=== PATIENT | female | born 1995 | race Caucasian/White ===

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

== ENCOUNTER 2017-02-15 18:03 | Emergency (ER) | payer OTHER ==
[2017-02-15] MEDS ORDERED: KETOROLAC 30 MG/1 ML SDV IVP ONE (19:09)
[2017-02-15] MEDS ORDERED: ONDANSETRON 4 MG/2 ML VIAL IVP ONE (19:09)
[2017-02-15] MEDS ORDERED: NS 1,000 ML IV ONE ×2 (19:09)
[2017-02-15] MEDS ORDERED: FAMOTIDINE 20 MG/NACL 50 ML IV ONE (19:09)
[2017-02-15 19:33] VITALS: RESP 18; O2SAT 97
[2017-02-15] MEDS ORDERED: DEXAMETHASONE 10 MG/ML VIAL IVP ONE (19:48)
--- NOTE | 2017-02-15 19:54 | EDPHY ---
H & P Time Seen by Provider: 02/15/17 19:07 HPI/ROS: HPI Flu-like symptoms. 21-year-old female by private vehicle from [facility]. She complains of flu-like symptoms including malaise, arthralgias and myalgias, sore throat, nausea, fever ongoing for 3 days now. She was seen today at the [facility]. She had negative Monospot, negative rapid strep and a negative flu. Her blood work was also unremarkable. She was sent down here for further evaluation. ROS: Constitutional: As above. Eyes: No discharge. No changes in vision. ENT: As above. No nasal congestion or rhinorrhea. Respiratory: No cough. No shortness of breath. Cardiac: No chest pain, no palpitations. Gastrointestinal: No abdominal pain, as above, no diarrhea. Genitourinary: No hematuria. No dysuria or increased frequency with urination. Musculoskeletal: As above. Skin: No rashes. Neurological: No headache. No focal weakness or altered sensation. Past medical history: Torn ACL and meniscus, exercise-induced asthma, shingles. As above. Social history: Student [place]. No alcohol. Nonsmoker. Here by herself. Physical Exam: General Appearance: Alert, no distress. This patient is responding to questions appropriately and in full sentences. This patient appears well- hydrated and well-nourished. Eyes: Pupils equal and round no pallor or injection. No lid edema, erythema or injection. ENT, Mouth: Mucous membranes are moist. Significant pharyngeal erythema with pharyngeal and tonsillar exudates. No significany edema or swelling. No asymmetry suggestive of abscess. No Strider on auscultation of her neck. Her voice changes. Respiratory: There are no retractions, lungs are clear to auscultation with good air movement bilaterally. Cardiovascular: Regular rate and rhythm. No murmur. Gastrointestinal: Abdomen is soft and nontender, no masses, bowel sounds normal. No focal tenderness at McBurney's point. No Villarreal sign. Neurological: Motor sensory function is grossly intact. Cranial nerves are normal. Gait is normal. Skin: Warm and dry, no rashes. Musculoskeletal: Neck is supple and nontender. Anterior cervical lymphadenopathy. No pain on flexion of the neck. Extremities are symmetrical. All joints range without pain or impingement. Psychiatric: No agitation. No depression. Database: EKG: Imaging: Procedures: Emergency department course: IV was placed. She was placed on a monitor. Rapid strep with culture ordered. It is unclear whether not she had a culture ordered at the [facility]. Vital signs reviewed. Mildly tachycardic. Temperature 37.6degrees. Vital signs otherwise unremarkable. IV established. She was started on IV normal saline with 1-2 L to be given over the next 1-2 hours. She has no history of renal dysfunction or peptic ulcer disease. She was given 30 mg of IV Toradol. She will be given 10 mg of IV Decadron. She will be given 4 mg of IV Zofran and 20 mg of IV Pepcid for nausea. 8:50 p.m., patient re-evaluated. She is feeling better at this time. Repeat abdominal exam she is soft, nontender nondistended. She has no right lower quadrant or periumbilical tenderness on palpation. She feels comfortable going home at this time. Follow-up and return to emergency department precautions reviewed with her. I discussed ibuprofen dosing with her. She will be prescribed Zofran for nausea. All of her questions were answered. She was discharged in good condition. Differential Diagnosis: The differential diagnosis on this patient includes but is not limited to influenza, mononucleosis, viral syndrome, viral pharyngitis. Appendicitis unlikely. This represents a partial list of diagnoses considered. These considerations are based on history, physical exam, past history, reassessment and diagnostic testing. Smoking Status: Never smoked Constitutional: Initial Vital Signs Temperature (C) 37.6 C 02/15/17 18:27 Heart Rate 106 H 02/15/17 18:27 Respiratory Rate 16 02/15/17 18:27 Blood Pressure 98/62 L 02/15/17 18:27 O2 Sat (%) 96 02/15/17 18:27 O2 Delivery Mode Room Air Allergies/Adverse Reactions: No Known Allergies Allergy (Verified 02/15/17 18:26) Home Medications: Medication Instructions Recorded Azurette 28 Day Tablet 02/15/17 IBUPROFEN 02/15/17 Ondansetron Odt [Zofran Odt 4 mg 4 mg PO Q4PRN PRN #10 tab 02/15/17 (*)] Medical Decision Making - Data Points Laboratory Results: Laboratory Results 02/15/17 19:10 Medications Given: Discontinued Medications Dexamethasone (Decadron Injection) 10 mg IVP EDNOW ONE Stop: 02/15/17 19:49 Last Admin: 02/15/17 19:57 Dose: 10 mg Sodium Chloride (Ns) 1,000 mls @ 0 mls/hr IV ONCE ONE; Wide Open PRN Reason: Protocol Stop: 02/15/17 19:10 Last Admin: 02/15/17 19:23 Dose: 1,000 mls Sodium Chloride (Ns) 1,000 mls @ 0 mls/hr IV ONCE ONE; Wide Open PRN Reason: Protocol Stop: 02/15/17 19:10 Last Admin: 02/15/17 20:14 Dose: 1,000 mls Famotidine/Sodium Chloride (Pepcid 20 Mg (Premix)) 50 mls @ 200 mls/hr IV EDNOW ONE Stop: 02/15/17 19:23 Last Admin: 02/15/17 19:24 Dose: 50 mls Ketorolac Tromethamine (Toradol) 30 mg IVP EDNOW ONE Stop: 02/15/17 19:10 Last Admin: 02/15/17 19:24 Dose: 30 mg Ondansetron HCl (Zofran) 4 mg IVP EDNOW ONE Stop: 02/15/17 19:10 Last Admin: 02/15/17 19:24 Dose: 4 mg Ondansetron HCl (Zofran Odt 4 Mg Prepack#2) 1 btl TAKEHOME EDNOW ONE Stop: 02/15/17 21:19 Last Admin: 02/15/17 21:18 Dose: 1 btl Departure - Departure Disposition: Home, Routine, Self-Care Clinical Impression: Pharyngitis, Viral syndrome Condition: Good Instructions: Ondansetron (By mouth), Pharyngitis (ED), Influenza (ED) Additional Instructions: Read and follow provided instructions. Follow-up with your primary care physician tomorrow for re-evaluation. You can start taking ibuprofen tomorrow morning. Ibuprofen dosin mg every 6 hours with meals for the next 3 days only. Take only as needed for pain. Take Tylenol as directed for fever. Keep well hydrated. Get plenty of rest. Return to the emergency department for worsening symptoms, worsening abdominal pain, high fever, vomiting and inability to keep fluids down despite medications or other serious concerns. Referrals: [facility] [Other] - As per Instructions Stand Alone Forms: School Excuse Prescriptions: Ondansetron Odt [Zofran Odt 4 mg (*)] 4 mg PO Q4PRN PRN #10 tab PRN Reason: For Nausea & Vomiting
[2017-02-15 20:59] LABS: HEMATOCRIT 36.1 % (38.0-47.0)
[2017-02-15 21:05] LABS: BILIRUBIN,TOTAL 0.5 mg/dL (0.1-1.4); BILIRUBIN-CONJUGATED 0.2 mg/dL (0.0-0.5); BILIRUBIN-UNCONJUGATED 0.3 mg/dL (0.0-1.1); TOTAL PROTEIN 6.9 g/dL (6.3-8.2)
[2017-02-15] MEDS ORDERED: ONDANSETRON 4MG PREPACK#2 BTL TAKEHOME ONE ×2 (21:17→21:18)
[2017-02-15 21:27] VITALS: BP 110/70; PULSE 95; TEMP 98.4
== END 2017-02-15 21:29 | disposition home or self-care (01) ==
DX: J02.9 Acute pharyngitis, unspecified (principal); B34.9 Viral infection, unspecified; E86.9 Volume depletion, unspecified; J45.909 Unspecified asthma, uncomplicated
CPT/HCPCS: 96365; J1100; J1885; J2405